=== PATIENT | female | born 1955 | race Caucasian/White ===

== ENCOUNTER 2020-05-14 07:53 | Observation (INO) ==
[2020-05-14] MEDS ORDERED: Naloxone 0.4 MG/ML INJ IVP PRN (10:23)
[2020-05-14] MEDS: DilTIAZem 50 MG/50 ML IV.SOLN IVC SCH (10:50)
[2020-05-14] MEDS ORDERED: Perflutren Lipid Microsphere 1.3 ML in 0.9 % Sodium Chloride 8.7 ML IVP PRN (12:23)
[2020-05-14] MEDS: Metoprolol XL (24 HR) Succ 50 MG TAB.ER.24H PO SCH ×2 (12:58→21:26)
[2020-05-14 21:45] LABS: Troponin I 0.03 ng/mL (< 0.04)
[2020-05-15 02:36] LABS: Basophils # 0.1 K/mcL (0.0-0.2); Basophils % 1.2 %; Eosinophils # 0.1 K/mcL (0.0-0.6); Eosinophils % 2.2 %; Hematocrit 42.5 % (35.3-44.9); Hemoglobin 13.9 g/dL (11.5-15.4); Immature Granulocytes % 0.2 % (0-4); Lymphocytes # 1.8 K/mcL (0.6-4.6); Lymphocytes % 34.4 %; Mean Corpuscular HGB Conc 32.7 g/dL (31.6-35.5); Mean Corpuscular Hemoglobin 31.2 pg (28.0-33.3); Mean Corpuscular Volume 95.3 fL (83.0-100.0); Monocytes # 0.5 K/mcL (0.0-1.3); Monocytes % 9.4 %; Neutrophils # 2.7 K/mcL (1.6-8.9); Platelet Count 264 K/mcL (140-400); Red Blood Count 4.46 M/mcL (3.82-4.97); Red Cell Distribution Width 14.6 % (11.5-14.5); Segmented Neutrophils % 52.6 %; White Blood Count 5.1 K/mcL (4.3-11.1)
[2020-05-15 02:39] LABS: Platelet Estimate Normal (Normal)
[2020-05-15 02:58] LABS: BUN/Creatinine Ratio 40 (6-26); Blood Urea Nitrogen 21 mg/dL (8-23); Calcium 9.5 mg/dL (8.6-10.3); Carbon Dioxide 24 mEq/L (23-29); Chloride 107 mEq/L (98-107); Glucose 101 mg/dL (70-105); Osmolality,Calculated 289 (280-300); Potassium 3.9 mEq/L (3.5-5.1); Sodium 138 mEq/L (136-145); eGFR For African Americans > 60 (> 60); eGFR For Non-African Americans > 60 (> 60)
[2020-05-15] MEDS: Metoprolol XL (24 HR) Succ 50 MG TAB.ER.24H PO SCH (07:54)
[2020-05-15 07:58] LABS: Magnesium 2.3 mg/dL (1.6-2.6); Phosphorous 4.1 mg/dL (2.7-4.5)
[2020-05-15] MEDS ORDERED: Levothyroxine 25 MCG TABLET PO SCH (11:25)
[2020-05-15 11:36] VITALS: BP 159/89
[2020-05-15] MEDS: DilTIAZem 50 MG/50 ML IV.SOLN IVC SCH (13:51)
== END 2020-05-15 15:15 | disposition left against medical advice (07) ==
LOC: 2ANU → SUATTDRO 09:56
PROVIDERS: ADMIT Internal Medicine; ATTEND Internal Medicine